=== PATIENT | male | born 1955 | race Caucasian/White ===

== ENCOUNTER 2024-07-07 07:57 | Emergency (ER) | payer MEDICARE, OTHER, SELFPAY ==
[2024-07-07 07:59] VITALS: BP 158/109
[2024-07-07 08:13] VITALS: BMI 26.3
[2024-07-07 08:15] VITALS: BP 171/110
[2024-07-07 08:37] LABS: % Basophils 1.1 % (0-2); % Eosinophils 1.1 % (0-6); % Immature Granulocytes 0.1 % (0-0.5); % Monocytes 7.9 % (1.7-9.3); % Neutrophils 69.8 % (42.2-75.2); Absolute Basophils 0.1 10^3/uL (0-0.2); Absolute Eosinophils 0.1 10^3/uL (0-0.7); Absolute Lymphocytes 1.4 10^3/uL (1.2-3.4); Absolute Monocytes 0.6 10^3/uL (0.1-0.6); Hematocrit 46.7 % (39.0-52.0); Hemoglobin 16.1 g/dL (13.0-18.0); Mean Corp Hgb Conc. 34.5 g/dL (33.0-37.0); Mean Corpuscular Hgb 30.5 pg (27.0-31.0); Mean Corpuscular Volume 88.4 fL (80.0-94.0); Mean Platelet Volume 8.7 fL (7.4-10.4); Nucleated Red Blood Cells % 0 % (-); Platelet Count 233 10^3/uL (130-400); Red Blood Cell Count 5.28 10^6/uL (4.70-6.10); Red Cell Dist. Width 12.5 % (11.5-14.5); White Blood Cell Count 7.2 10^3/uL (4.8-10.8)
[2024-07-07 08:52] LABS: COVID-19 Antigen Negative (Negative)
[2024-07-07 09:00] VITALS: BP 141/97
[2024-07-07 09:15] LABS: ALT (SGPT) 23 U/L (0-50); AST (SGOT) 26 U/L (17-59); Albumin 4.8 g/dl (3.5-5.0); Alkaline Phosphatase 75 U/L (38-126); Blood Urea Nitrogen 18 mg/dl (9-20); Calcium 9.2 mg/dl (8.4-10.2); Carbon Dioxide 21 mmol/L (22-30); Chloride 103 mmol/L (98-107); Estimated Creatinine Clearance 72 ml/min; Glucose 108 mg/dl (70-99); Sodium 138 mmol/L (135-145); Total Bilirubin 2.3 mg/dl (0.2-1.3); Total Protein 7.3 g/dl (6.3-8.2); eGFR > 60.00
[2024-07-07 10:00] VITALS: BP 148/89
--- NOTE | 2024-07-07 10:01 | ED.GENMED ---
History of Present Illness
General
Chief Complaint: Breathing Problem
Source: patient
Exam Limitations: none
Time Seen by Provider: 07/07/24 08:45
Nursing documentation reviewed up to this point in time: agreed with
History of Present Illness
History of Present Illness:
69-year-old male with a history of migraines
Presents for intermittent episodes of feeling short of breath over the last 2 weeks. He says he did not tell his about it until recently when she noticed that he lost his appetite. Patient says he has been worried about why he feels this way.
He does not go to the doctor very often. She noticed that he was not eating 2 days ago and he said he took a couple bites and then did not feel like eating anymore. He is felt episodes of feeling short of breath but is not necessarily exertional.
He did stop exercising not because he felt short of breath doing it but because he was worried about exercising with the problem. He is not sure if he has cancer or heart attack but his mind has been racing about what been going on. Patient does
not smoke. He has never had any cardiac evaluation. He does not take any blood pressure medication. He does not go to the doctor for routine checkups. Patient has not had a fever, cough, sore throat, syncope, leg swelling, pleuritic pain. He
did have a long travel several months ago where he drove across the country but this was over 3 months ago
Past History
Past History
ED Past Medical History: Other (migraines)
ED Past Surgical History: None
Social History
Tobacco: Non-smoker
Alcohol: Daily
Review of Systems
Review of Systems
Allergies reviewed?: Yes
All Other Systems: Not applicable
Phy Exam
Physical Exam
Physical Exam:
GENERAL: Alert , in no apparent distress
EYE: pupils equal and reactive
NECK: Supple
ENT: o/p clr, mmm.
CARDIAC: Regular rate and rhythm . No murmur appreciated
LUNGS: Clear breath sounds bilaterally, no acute respiratory distress, no wheezes/rales/rhonchi
ABDOMEN: Soft, without focal tenderness, no r/g, no cvat, normal bowel sounds
NEUROLOGICAL: Alert and oriented, no focal neuro deficits
SKIN: Warm and dry, skin intact.
MUSCULOSKELETAL: No edema, well perfused. neg sheldon's sign
PSYCH: cooperative, mildly anxious
Scores
Heart Failure Risk
Heart Failure Risk Score: Not Applicable
Course
Orders/Labs/Results
Orders:
Orders
07/07/24 08:02
Electrocardiogram (*1) Urgent
Reason for Study: Shortness of Breath
EKG- Treatment ONCE
07/07/24 08:20
NT-proBNP Urgent
Troponin I Urgent
07/07/24 08:22
COVID-19 Antigen Urgent
Source: Nasal Swab
Complete Blood Count/With Diff Urgent
Comprehensive Metabolic Panel Urgent
Lipase Urgent
Comment: ADD ON
Influenza A+B Rapid Molecular Urgent
CARA Source: Nasal Swab
Specimen Description:
07/07/24 09:19
CT Chest PE Study Urgent
Comment:
Reason For Exam: SOB X 2 WEEKS, TACHY
07/07/24 10:56
Add On- LAB Urgent
Tests Added?: lipase
Abnormal Lab Results
07/07/24
08:22
Lymphocytes % 20.0 L %
(20.5-51.1)
Carbon Dioxide 21 L mmol/L
(22-30)
Glucose 108 H mg/dl
(70-99)
Total Bilirubin 2.3 H mg/dl
(0.2-1.3)
07/07/24 08:22
07/07/24 08:22
Vital Signs
Initial and Last Documented VS:
Initial Vital Signs
Temp Pulse Resp BP Pulse Ox
36.5 C 109 18 158/109 97
07/07/24 07:59 07/07/24 07:59 07/07/24 07:59 07/07/24 07:59 07/07/24 07:59
Last Documented Vital Signs
Temp Pulse Resp BP Pulse Ox
36.5 C 94 17 137/91 95
07/07/24 07:59 07/07/24 11:15 07/07/24 11:15 07/07/24 11:00 07/07/24 12:25
MDM/Problems Addressed
Differential Diagnosis Includes:
pe, acs, maliganncy, anxiety
MDM/Problems Addressed:
69 y/o M
no chronic problems
doesn't visit doctor often
2 weeks feeling occ sob
not necessarily exertional, not asoiccated with CP
but pt started having loss appetite a few days ago that noticed then today he told her that he was feeling like he couldn't catch his breath
no syncope, vomiting, dairrheam abdomianl pain, sweaitiness, jaw pain, cold symptoms
pt is anxious
mildly hypertensive
no resp distress
sometimes HR > 100
normal pulse ox
lungs clear
no edema
no murmur
ekg pulm axis but no st elevation
trop neg
bnp normal
hg normal
t bili elevated, similar to previous
added on lipase
ct pe neg
some pulm nodules
no pe
lipsae normal
ambulated steadily, normal pulse ox, no dyspnea
d/c hoem
otupatient pcp and cards fj/u
*Critical Care Note
Total Time (30-74mins, 75-104mins- exclusive of procedures): Not Applicable
ED Attending Note
-
Portions of this chart may have been created with voice recognition software.� Occasional wrong word or��sound alike� substitutions may have occurred due to the inherent limitations of voice recognition software.
Discharge Plan
Departure
Patient Disposition: Home (Routine Discharge)
Date of Disposition: 07/07/24
Time of Disposition: 12:12
Patient with high blood pressure during this ER visit?: No
Condition: Fair
Discharge Problem:
Dyspnea
Instructions: Shortness of Breath (Dyspnea) (DC)
Referrals:
Salinas Sen MD [Family Provider] - Follow up in 2-3 days
Yung Slater MD [Active] - Follow up in 5-7 days (cardiiology)
Activity Restrictions/Additional Instructions:
Were not sure the cause of your shortness of breath but it does not seem to be an emergency today. Your laboratory studies show just a mild elevation of your bilirubin which she has had previously and this is unlikely to be relevant. Your chest
CT showed small left upper lobe pulmonary nodules, measuring 4 mm and 2 mm. These just need to be monitored in about 12 months for repeat imaging. You have no blood clot, your cardiac markers were normal. You should follow-up with your family
doctor this may be situational or could be something you need medication for further workup. Your blood pressure was mildly elevated today. You should also see cardiology. Please call for an appointment ,There they can do a better cardiac
evaluation
Return for worsening symptoms like inability to walk around due to shortness of breath, chest pain with walking, passing out, leg swelling etc.
Interventions
Interventions:
*Risk Screen - Suicide Last Done: 07/07/24 07:59
*General Assessment Last Done: 07/07/24 07:59
*Neglect/Abuse Screening Last Done: 07/07/24 07:59
ED- Fall Risk Assessment Last Done: 07/07/24 08:16
*ED COVID-19 Vaccine History Last Done: 07/07/24 08:16
*Nursing Disposition Last Done: 07/07/24 12:25
ED- Cardiac Assessment Last Done: 07/07/24 08:16
ED- Pulmonary Assessment Last Done: 07/07/24 08:16
Discharge Date and Time
Discharge Date/Time: 07/07/24 12:26
Print Language: SLOVENIAN
[2024-07-07 10:05] LABS: NT-proBNP 55.7 pg/ml; Troponin I < 0.012 ng/ml
[2024-07-07 11:00] VITALS: BP 137/91
[2024-07-07 12:11] LABS: Lipase 51 U/L (23-300)
== END 2024-07-07 12:26 | disposition home or self-care (01) ==
LOC: EMR 07:57
PROVIDERS: Physician Assistant; EMERGENCY PHYSICIAN Emergency Medicine; FAMILY PHYSICIAN Family Medicine
DX: R06.00 Dyspnea, unspecified (principal)
CPT/HCPCS: 99284; 71275; 80053; 83690; 83880; 84484; 85025; 87502; 87811; 93005; Q9967